=== PATIENT | female | born 1970 | race Caucasian/White ===

== ENCOUNTER 2017-07-03 16:27 | Emergency (ER) | payer OTHER ==
[~2017-07-03] VITALS: Ht 157.5 cm; Wt 63.5 kg
[~2017-07-03 16:27] MED LIST: ATIVAN1 MG PO; LEXAPRO20 MG PO; TRAMADOL HCL50 MG PO; TRIHEXYPHENIDYL2 MG PO
[2017-07-03 16:30] VITALS: Ht 157.5 cm; Wt 63.5 kg
[2017-07-03 19:24] VITALS: BP 147/71
== END 2017-07-03 19:24 | disposition home or self-care (01) ==
LOC: ED 16:27
DX: G43.909 Migraine, unspecified, not intractable, without status migrainosus (principal)
CPT/HCPCS: J3030; Q0162

== ENCOUNTER 2019-05-07 17:06 | Emergency (ER) | payer SELFPAY ==
[~2019-05-07] VITALS: Ht 157.5 cm; Wt 74.8 kg
[2019-05-07 17:33] VITALS: Ht 157.5 cm; Wt 74.8 kg
[2019-05-07 19:45] LABS: PLATELET COUNT 302 x10^3mcL (130-400); RED CELL DISTRIBUTION WIDTH 13.5 % (11.5-14.5)
[2019-05-07 20:10] LABS: CALCIUM 9.1 mg/dL (8.5-10.1); CARBON DIOXIDE 25.7 mmol/L (21-32); CHLORIDE SERUM 103 mmol/L (98-107); CREATININE SERUM 0.8 mg/dL (0.6-1.0); GFR1 > 60 mL/min; GLUCOSE SERUM 87 mg/dL (74-106); POTASSIUM SERUM 3.9 mmol/L (3.5-5.1); SODIUM SERUM 139 mmol/L (136-145)
[2019-05-07 20:15] LABS: ALKALINE PHOSPHATASE 110 U/L (46-116); ALT/SGPT 27 U/L (14-59); AST/SGOT 22 U/L (15-37); BILIRUBIN TOTAL 0.3 mg/dL (0.20-1.00); TOTAL PROTEIN, SERUM 7.5 g/dL (6.4-8.2)
[2019-05-07 21:36] VITALS: BP 147/87
== END 2019-05-07 21:37 | disposition home or self-care (01) ==
LOC: ED 17:06
PROVIDERS: Emergency Medicine
DX: J40 Bronchitis, not specified as acute or chronic (principal)
CPT/HCPCS: 36415; 85378